=== PATIENT | female | born 1950 | race Hispanic/Latino ===

== ENCOUNTER 2017-07-01 08:30 | Day surgery (SDC) | payer BC, MEDICARE ==
[2017-06-21 13:14] VITALS: BMI 11.0
[2017-07-01] MEDS ORDERED: Midazolam 2 MG/2 ML VIAL ONE (09:58)
[2017-07-01] MEDS ORDERED: Propofol 10 mg/ml Inj (20 ML) ONE (09:58)
[2017-07-01] MEDS ORDERED: Rocuronium 10 mg/ml (5 ml) ONE (10:01)
[2017-07-01] MEDS ORDERED: Bupivacaine 0.5% Inj(30mL) ONE (10:01)
[2017-07-01] MEDS ORDERED: Iohexol 240 (50 ml) ONE (10:01)
[2017-07-01] MEDS ORDERED: Ciprofloxacin 400mg/200ml D5W 400 MG/200 ML BAG IVPB ONE (10:08)
[2017-07-01] MEDS ORDERED: Glycopyrrolate 0.2 mg/ml (2ml vial) ONE (11:26)
[2017-07-01] MEDS ORDERED: Neostigmine Methylsulfate 3mg/3ml Syringe IV ONE (11:26)
--- NOTE | 2017-07-01 11:53 | PCM.SURG1 ---
Surgeon's Initial Post Op Note - Surgeon's Notes Surgeon: Dr. Klein Paper Feeder: Shant Lockhart PGY2 Type of Anesthesia: General Endo, Local Pre-Operative Diagnosis: Chronic cholecystitis, cholelithiasis Operative Findings: No choledocolithiasis, distended Gallbladder Post-Operative Diagnosis: Same Operation Performed: Laparascopic cholecystectomy w cholangiogram Specimen/Specimens Removed: gallbladder Estimated Blood Loss: EBL {In ML}: 10 Blood Products Given: N/A Drains Used: No Drains Post-Op Condition: Good Date of Surgery/Procedure: 07/01/17 Time of Surgery/Procedure: 11:53
[2017-07-01] MEDS ORDERED: Oxycodone/Acetaminophen 5/325 mg Tab PO PRN ×2 (11:54→11:59)
[2017-07-01] MEDS ORDERED: HYDROmorphone 1 mg/ml ISec IVP PRN ×2 (11:54→12:00)
[2017-07-01] MEDS ORDERED: HYDROmorphone 0.5 mg/0.5 ml ISec IVP PRN (12:21)
[2017-07-01] MEDS ORDERED: Lactated Ringer's 1,000 ML IV SCH (12:30)
[2017-07-01 12:58] VITALS: RESP 20; TEMP 97.8
[2017-07-01 14:02] VITALS: BP 150/55; PULSE 82; O2SAT 97
--- NOTE | 2017-07-01 14:44 | RAD ---
PROCEDURE: Intraoperative cholangiogram HISTORY: ? CBD OBST COMPARISON: None TECHNIQUE: Total fluoroscopic time (continuous mode) utilized during the procedure 52.1 seconds. Total exam DLP: (mGy) 10.94 FINDINGS: Submitted images from the current procedure: 5.0 IMPRESSION: Less than 1 hr fluoroscopic time utilized during performance of the procedure.
--- NOTE | 2017-07-02 02:47 | OP ---
PROCEDURE DATE: 07/01/2017 PREOPERATIVE DIAGNOSES: Chronic cholecystitis, cholelithiasis. POSTOPERATIVE DIAGNOSES: Chronic cholecystitis, cholelithiasis. PROCEDURE PERFORMED: Laparoscopic cholecystectomy with intraoperative cholangiogram. SURGEON: Yasmany Klein MD. AIRCRAFT MAINTENANCE INSTRUCTOR: . ANESTHESIOLOGIST: Dr. Lockhart. ANESTHESIA: General endotracheal anesthesia. ESTIMATED BLOOD LOSS: Minimal. SPECIMEN: Gallbladder with gallstones. INDICATIONS: The patient is a 67-year-old female with history of recurrent right upper quadrant abdominal pain and discomfort, who was diagnosed with chronic cholelithiasis and was scheduled for laparoscopic cholecystectomy. DESCRIPTION OF PROCEDURE: The patient was brought to the operating room and placed on the operating table in supine position. The patient was connected to the EKG, blood pressure, and pulse oximetry monitors. The patient then underwent general endotracheal anesthesia and was prepped and draped in usual sterile fashion. First, a standard time-out procedure was place and everybody in the room agreed as to the patient's identity, diagnoses, and procedure to be performed. A plan of surgical procedure as well as postoperative management was discussed with the team. I then proceed with injecting lidocaine in the supraumbilical area and elevated the abdominal wall with 2 towel clips. A small incision was made superior to the umbilicus transversely and a 12-mm trocar was carefully inserted into the abdominal cavity. Once this was in place, the patient was positioned in the reverse Trendelenburg and left side tilted down in that position and in subxiphoid position 5-mm trocar was inserted under direct visualization. Once these trocars were in place, I then carefully grabbed the gallbladder and elevated it towards the exposure of the and the peritoneal band was carefully taken down from the pericholecystic area and the cystic duct was carefully exposed. It was carefully dissected out from all the fat tissue surrounded it and then clipped proximally. Directly behind the cystic duct, the cystic artery was also identified. Once the cystic duct was clipped proximally, it was then carefully incised on the side of it in order to accommodate the cholangiocatheter. Now, under direct visualization with fluoroscopy, the cholangiocatheter was obtained revealing prompt flow of dye into the entire biliary tree. We then removed the trocar. The cystic duct was then incised on its side and the cholangiocatheter was inserted into cystic duct. Now under direct visualization with fluoroscopy, cholangiogram was obtained revealing prompt flow of dye into the entire biliary tree and emptying into the duodenum. There was no evidence of any obstruction. Now, the cholangiocatheter was removed, cystic duct clipped distally and transected, cystic artery was also clipped and transected. The gallbladder was carefully taken off the liver bed using electrocautery. Once completely detached from the liver bed, it was placed in the EndoCatch bag and removed through the periumbilical incision. The right upper quadrant was now copiously irrigated. All the irrigant fluid was suctioned out. The patient's pneumoperitoneum was released. The trocars were removed. The fascia was closed using 0 Vicryl. Once the irrigation fluid was all suctioned out and excellent hemostasis was assured, I then proceeded with removal of the trocars and closure of the wound using 0 Vicryl for the fascia, 3-0 Vicryl for the subcutaneous tissue, and 4-0 Monocryl for skin. Sterile Dermabond dressing was applied to the wound. The patient tolerated the procedure well and there were no complications. The patient was awakened and transferred to the recovery room for further observation. Yasmany Klein MD
== END 2017-07-01 15:15 | disposition home or self-care (01) ==
LOC: SDS 08:30
PROVIDERS: ATTEND General Practice
DX: K80.10 Calculus of gallbladder with chronic cholecystitis without obstruction (principal)
CPT/HCPCS: 47563; 74300; 88304; J0744; J1100; J1170; J1885; J2250; J2405; J2704; J2710; J2765; J3010; J7120 ×2; Q9966